=== PATIENT | female | born 1965 | race Caucasian/White ===

== ENCOUNTER 2017-01-09 08:13 | Emergency (ER) | payer OTHER ==
[2017-01-09 08:39] VITALS: BP 183/81
--- NOTE | 2017-01-09 09:19 | UC ---
Ji Clifton Benjamin, scribed for Hiren Mccallum MD on 01/09/17 at 0902 . Complaint Female HPI - HPI Summary HPI Summary: 52yo female c/o burning sensation dysuria, also with blood for 2 days. Pt also reports having diarrhea for a month with some stomach cramps. PMHx includes tubal ligation and HTN. - History Of Current Complaint Chief Complaint: UCGU Stated Complaint: UTI SYMPTOMS Time Seen by Provider: 01/09/17 08:56 Hx Obtained From: Patient Hx Last Menstrual Period: 2010 ?: No Onset/Duration: Gradual Onset, Lasting Days - 2 days, Still Present Timing: Intermittent Severity Initially: Mild Severity Currently: Mild Character: Burning Aggravating Factor(s): Nothing Alleviating Factor(s): Nothing Associated Signs And Symptoms: Positive: Negative - Allergies/Home Medications Allergies/Adverse Reactions: Allergies Allergy/AdvReac Type Severity Reaction Status Date / Time No Known Allergies Allergy Verified 01/09/17 08:33 PMH/Surg Hx/FS Hx/Imm Hx Endocrine History Of: Denies: Diabetes, Thyroid Disease Cardiovascular History Of: Reports: Hypertension Denies: Cardiac Disorders Respiratory History Of: Reports: Asthma Denies: COPD GI/ History Of: Denies: Ulcer Cancer History Of: Denies: Breast Cancer - Surgical History Surgical History: Yes Surgery Procedure, Year, and Place: tubes tied - Family History Known Family History: Positive: Hypertension - father, mother, Diabetes - father , mother, Respiratory Disease - father - Social History Occupation: Employed Full-time Lives: Alone Alcohol Use: Occasionally Substance Use Type: None Smoking Status (MU): Never Smoked Tobacco - Immunization History Most Recent Influenza Vaccination: fall 2015 Most Recent Tetanus Shot: up to date Review of Systems Constitutional: Negative Skin: Negative Eyes: Negative ENT: Negative Respiratory: Negative Cardiovascular: Negative Gastrointestinal: Negative Genitourinary: Dysuria, Hematuria Motor: Negative Neurovascular: Negative Musculoskeletal: Negative Neurological: Negative Psychological: Negative All Other Systems Reviewed And Are Negative: Yes Physical Exam Triage Information Reviewed: Yes Appearance: Well-Appearing, No Pain Distress, Well-Nourished, Obese Vital Signs: Initial Vital Signs Temp 97.7 F 01/09/17 08:34 Pulse 80 01/09/17 08:34 Resp 16 01/09/17 08:34 BP 183/81 01/09/17 08:34 Pulse Ox 98 01/09/17 08:34 Eye Exam: Normal ENT Exam: Normal Dental Exam: Normal Neck exam: Normal Respiratory: Positive: Lungs clear, Normal breath sounds Cardiovascular: Positive: RRR, No Murmur Abdomen Description: Positive: Nontender. Negative: CVA Tenderness (R), CVA Tenderness (L) Musculoskeletal: Positive: Strength Intact, ROM Intact Neurological Exam: Normal Psychological Exam: Normal Skin Exam: Normal Complaint Female Dx - Course Course Of Treatment: 51 yr old female with UTI, will rx with cipro. I have referred her to her PMD for follow up for her change in bowel and health maintenance. - Differential Dx/Diagnosis Provider Diagnoses: Urinary tract infection Discharge - Discharge Plan Condition: Good Disposition: HOME Prescriptions: Ciprofloxacin HCl [Cipro 250 MG TAB] 250 mg PO BID #14 tab Patient Education Materials: Urinary Tract Infection in Women (ED) Referrals: Jose Alfredo Spann MD [Primary Care Provider] - 1 Day Additional Instructions: You need to follow up with your primary care doctor for your loose stools, and routine health maintenance. You need colonoscopy screening if you have not had one yet. Call your doctor today for follow up. The documentation as recorded by the Ji lo Benjamin accurately reflects the service I personally performed and the decisions made by Alessio vargas Walter, MD.
== END 2017-01-09 09:22 | disposition home or self-care (01) ==
LOC: UCEAST 08:13
DX: N39.0 Urinary tract infection, site not specified (principal); R31.9 Hematuria, unspecified; R19.7 Diarrhea, unspecified; I10 Essential (primary) hypertension; J45.909 Unspecified asthma, uncomplicated; E66.9 Obesity, unspecified
CPT/HCPCS: 81003; 87077; 87086; 87186; 99212; G0463

== ENCOUNTER 2017-07-26 09:57 | Emergency (ER) | payer OTHER ==
[2017-07-26] MEDS ORDERED: Ibuprofen TAB* 800 MG PO ONE ×2 (11:33→11:35)
[2017-07-26 13:45] VITALS: BP 120/62
--- NOTE | 2017-07-26 13:47 | ED ---
Throat Pain/Nasal Congestion - HPI Summary HPI Summary: Pt here w/ B/L otalgia and pressure x 3 months. She has been to her PCP's office 3 x since this started and has completed 3 courses of antibiotics. She reports minimal relief with each course however pressure and fullness persist. Past 2 days, she's developed rhinorrhea and today has sinus pain/pressure and generalized achiness. Chills w/o fever. PND w/ minor ST this morning. Denies cough, chest pain, SOB, rash, ab pain, N/V/D, otorrhea, hearing loss. She admits to deviated septum and h/o allergies (dogs). Has not tried decongestants nor anti-histamines throughout the course of her sx's. - History of Current Complaint Chief Complaint: EDEarPain Time Seen by Provider: 07/26/17 11:33 Hx Obtained From: Patient, Family/Music Minister - nephew - Allergies/Home Medications Allergies/Adverse Reactions: Allergies Allergy/AdvReac Type Severity Reaction Status Date / Time No Known Allergies Allergy Verified 07/26/17 10:02 PMH/Surg Hx/FS Hx/Imm Hx Previously Healthy: Yes Endocrine/Hematology History: Denies: Hx Diabetes, Hx Thyroid Disease Cardiovascular History: Reports: Hx Hypertension - controlled w/ meds Respiratory History: Reports: Hx Asthma, Other Respiratory Problems/Disorders - dogs - possibly environmental allergies Denies: Hx Chronic Obstructive Pulmonary Disease (COPD) GI History: Denies: Hx Ulcer History: Denies: Hx Dialysis, Hx Renal Disease - Cancer History Hx Chemotherapy: No Hx Radiation Therapy: No - Surgical History Surgery Procedure, Year, and Place: tubal Infectious Disease History: No Infectious Disease History: Denies: Hx Clostridium Difficile, Hx Hepatitis, Hx Human Immunodeficiency Virus (HIV), Hx of Known/Suspected MRSA, Hx Shingles, Hx Tuberculosis, Hx Known/ Suspected VRE, Hx Known/Suspected VRSA, History Other Infectious Disease, Traveled Outside the [place] in Last 30 Days - Family History Known Family History: Positive: Hypertension - father, mother, Diabetes - father , mother, Respiratory Disease - father - Social History Occupation: Employed Full-time - [employer] Lives: Alone Alcohol Use: Occasionally Hx Substance Use: No Substance Use Type: Reports: None Hx Tobacco Use: No Smoking Status (MU): Never Smoked Tobacco Review of Systems Positive: Chills. Negative: Fever Eyes: Negative Negative: Photophobia, Blurred Vision, Diplopia, Drainage, Erythema Positive: Sore Throat, Ear Ache, Nasal Discharge. Negative: Epistaxis, Dental Pain Cardiovascular: Negative Respiratory: Negative Gastrointestinal: Negative Positive: no symptoms reported Positive: Arthralgia. Negative: Decreased ROM, Edema Skin: Negative Neurological: Negative Psychological: Other - frustrated All Other Systems Reviewed And Are Negative: Yes Physical Exam Triage Information Reviewed: Yes Vital Signs On Initial Exam: Initial Vitals Temp Pulse Resp BP Pulse Ox 98.0 F 102 17 151/91 100 07/26/17 09:58 07/26/17 09:58 07/26/17 09:58 07/26/17 09:58 07/26/17 09:58 Vital Signs Reviewed: Yes Appearance: Positive: Well-Appearing, No Pain Distress, Well-Nourished Skin: Positive: Warm, Dry - no rash Head/Face: Positive: Normal Head/Face Inspection - Sinuses NTTP Eyes: Positive: Normal, EOMI, NOEMI, Conjunctiva Clear. Negative: Conjunctiva Inflammed, Discharge ENT: Positive: Normal ENT inspection, Hearing grossly normal, Pharynx normal, Nasal congestion - mild - Lt nare occluded - Rt nare patent (appears to have deviated setpum), TMs normal - pearly, clear - no erythema, no d/c, no lesions, TM bulging. Negative: Nasal drainage Neck: Positive: Supple, Nontender - mild, Enlarged Nodes @ - shoddy cc LN's Respiratory/Lung Sounds: Positive: Clear to Auscultation, Breath Sounds Present. Negative: Rales, Rhonchi, Stridor, Wheezes Cardiovascular: Positive: Normal, RRR, S1, S2. Negative: Murmur, Rub Abdomen Description: Positive: Nontender, Soft Bowel Sounds: Positive: Present Musculoskeletal: Positive: Normal, Strength/ROM Intact Neurological: Positive: Normal, Sensory/Motor Intact, Alert, Oriented to Person Place, Time, CN Intact II-III Psychiatric: Positive: Normal - Seven Coma Scale Coma Scale Total: 15 Diagnostics - Vital Signs Vital Signs Temp Pulse Resp BP Pulse Ox 07/26/17 13:00 98 146/127 95 07/26/17 12:30 99 144/76 95 07/26/17 12:00 101 124/81 95 07/26/17 11:41 96 07/26/17 11:30 100 142/79 97 07/26/17 11:00 100 144/70 97 07/26/17 10:30 100 146/73 98 07/26/17 10:20 107 96 07/26/17 10:18 129/74 07/26/17 10:16 145/80 07/26/17 09:58 98.0 F 102 17 151/91 100 - Laboratory Lab Results: Lab Results 07/26/17 07/26/17 Range/Units 11:51 12:08 Influenza A (Rapid) Negative (Negative) Influenza B (Rapid) Negative (Negative) Group A Strep Rapid Negative (Negative) Lab Statement: Any lab studies that have been ordered have been reviewed, and results considered in the medical decision making process. EENT Course/Dx - Course Course Of Treatment: Pt does not appear to have infection rather chronic swelling of nasal passages along w/ deviated septum cauing eustachian tube dysfunction. Recommend decongestants w/ BP monitoring - if elevated, stop decongestants and continue w/ saline nasal spray/throat gargles alone. SHe had relief today as well w/ ibuprofen - recommend continuing for anti-inflammatory effects. F/u w/ ENT as directed in Aug. If worse, f/u w/ PCP and recommend outpt CT. - Diagnoses Provider Diagnoses: Eustachian tube dysfunction, Deviated septum Discharge - Discharge Plan Condition: Stable Disposition: HOME Patient Education Materials: Earache (ED) Referrals: Jose Alfredo Spann MD [Primary Care Provider] - Additional Instructions: You appear to have chronic swelling of nasal passages along with deviated septum causing a eustachian tube dysfunction. You may try decongestants such as saline nasal spray, menthol ointment rub (ie. Vicks's vapor rub) and/or throat lozenges (ie. cough drops, etc) and Afrin nasal spray. NOTE: check Blood Pressure of you decide to use Afrin as this may elevate your level. If blood pressure remains <140/90 and no symptoms, may continue to use. If blood pressure > 140/90 and/or you develop headache, visual change, chest pain, shortness of breath - do not repeat use and seek medical attention. Follow-up with ENT as directed in August. *If worse prior, follow-up with PCP and recommend outpatient CT.
== END 2017-07-26 13:44 | disposition home or self-care (01) ==
LOC: ED 09:57
DX: H69.90 Unspecified Eustachian tube disorder, unspecified ear (principal); J34.2 Deviated nasal septum; J02.9 Acute pharyngitis, unspecified
CPT/HCPCS: 87502; 87651; 99282; A9270-GY

== ENCOUNTER 2018-09-02 10:27 | Emergency (ER) | payer OTHER ==
[2018-09-02 10:33] VITALS: BP 136/86
--- NOTE | 2018-09-02 10:35 | UC ---
Respiratory Complaint HPI - HPI Summary HPI Summary: 53 yo female presents with sinus pain/pressure/congestion, left ear pain and intermittently productive cough for the last 6-7 days. She tells me that she has a history of asthma and uses her proair at home with good relief for a short time. She has not been taking anything OTC. Does feel some short of breath at times. Denies fever, chills, sore throat, chest pain, n/v. - History of Current Complaint Chief Complaint: UCRespiratory Stated Complaint: EAR PAIN Time Seen by Provider: 09/02/18 10:34 Hx Obtained From: Patient Hx Last Menstrual Period: 2010 Onset/Duration: Gradual Onset Severity Initially: Mild Severity Currently: Mild Pain Intensity: 3 Pain Scale Used: 0-10 Numeric Character: Cough: Productive - Allergies/Home Medications Allergies/Adverse Reactions: Allergies Allergy/AdvReac Type Severity Reaction Status Date / Time No Known Allergies Allergy Verified 09/02/18 10:33 PMH/Surg Hx/FS Hx/Imm Hx Respiratory History: Asthma GI/ History: Gastroesophageal Reflux - Surgical History Surgical History: Yes Surgery Procedure, Year, and Place: tubal - Family History Known Family History: Positive: Hypertension - father, mother, Diabetes - father , mother, Respiratory Disease - father - Social History Occupation: Employed Full-time Lives: With Family Alcohol Use: Occasionally Substance Use Type: None Smoking Status (MU): Never Smoked Tobacco - Immunization History Most Recent Influenza Vaccination: fall 2015 Most Recent Tetanus Shot: up to date Review of Systems All Other Systems Reviewed And Are Negative: Yes Constitutional: Positive: Negative Skin: Positive: Negative Eyes: Positive: Negative ENT: Positive: Ear Ache, Nasal Discharge, Sinus Congestion, Sinus Pain/ Tenderness Respiratory: Positive: Cough Cardiovascular: Positive: Negative Gastrointestinal: Positive: Negative Neurovascular: Positive: Negative Neurological: Positive: Negative Psychological: Positive: Negative Physical Exam - Summary Physical Exam Summary: GENERAL: NAD. WDWN. No pain distress. SKIN: No rashes, sores, lesions, or open wounds. HEENT: Head: AT/NC Eyes: Conjunctiva clear without inflammation or discharge. Ears: Hearing grossly normal. TMs intact, no bulging, erythema, or edema. Nose: Nasal mucosa mildly swollen and erythematous with yellow discharge. TTP maxillary and frontal sinus. Positive post nasal drip Throat: Posterior oropharynx without exudates, erythema, or tonsillar enlargement. Uvula midline. NECK: Supple. Nontender. No lymphadenopathy. CHEST: Mild wheezing throughout. No r/r. No accessory muscle use. Breathing comfortably and in no distress. CV: RRR. Without m/r/g. Pulses intact. Cap refill <2seconds NEURO: Alert. PSYCH: Age appropriate behavior. Triage Information Reviewed: Yes Vital Signs: Initial Vital Signs Temp 97.8 F 09/02/18 10:31 Pulse 83 09/02/18 10:31 Resp 16 09/02/18 10:31 BP 136/86 09/02/18 10:31 Pulse Ox 100 09/02/18 10:31 Vital Signs Reviewed: Yes UC Diagnostic Evaluation - Laboratory O2 Sat by Pulse Oximetry: 100 Respiratory Course/Dx - Course Course Of Treatment: CXR: IMPRESSION: RIGHT MIDDLE LOBE ATELECTASIS. Sinusitis. Asthma exacerbation. - Differential Dx/Diagnosis Provider Diagnosis: Sinusitis, Asthma exacerbation Discharge - Sign-Out/Discharge Documenting (check all that apply): Patient Departure All imaging exams completed and their final reports reviewed: Yes - Discharge Plan Condition: Stable Disposition: HOME Prescriptions: Azithromycin TAB* [Zithromax TAB (Z-SIMONA) 250 mg #6 tabs] 2 tab PO .TODAY, THEN 1 DAILY #1 simona Patient Education Materials: Sinusitis (ED), Atelectasis (ED) Referrals: Jose Alfredo Spann MD [Primary Care Provider] - Additional Instructions: If you develop a fever, shortness of breath, chest pain, new or worsening symptoms - please call your PCP or go to the ED. Your blood pressure was high at todays visit. Please see your primary provider within 4 weeks for recheck and re-evaluation. - Billing Disposition and Condition Condition: STABLE Disposition: Home - Attestation Statements Provider Attestation: I was available for consult. This patient was seen by the MARLON. The patient was not presented to, seen by, or examined by me
== END 2018-09-02 11:40 | disposition home or self-care (01) ==
LOC: UCEAST 10:27
DX: J32.9 Chronic sinusitis, unspecified (principal); J45.901 Unspecified asthma with (acute) exacerbation
CPT/HCPCS: 71046; 99212; G0463

== ENCOUNTER 2019-09-10 11:52 | Emergency (ER) | payer OTHER ==
--- OUTSIDE RECORDS SUMMARY | 2019-09-10 12:16 | XMS REPORT | Continuity of Care Document ---
:1965 External Reference #:[id number] Author Name Jose Alfredo Spann M.D. Address [address] [place] [id number] Problems Active Problems Provider Date Asthma without status asthmaticus Jose Alfredo Spann M.D. Onset: 12/15/2011 Malaise and fatigue Jose Alfredo Spann M.D. Onset: 12/15/2011 Dysmenorrhea Deirdre Aleksander FNP Onset: 12/15/2011 Benign essential hypertension Jose Alfredo Spann M.D. Onset: 12/15/2011 Peptic reflux disease Jose Alfredo Spann M.D. Onset: 12/15/2011 Mixed hyperlipidemia Jose Alfredo Spann M.D. Onset: 12/15/2011 Allergic rhinitis Jose Alfredo Spann M.D. Onset: 12/15/2011 Other malaise Jose Alfredo Spann M.D. Onset: 06/06/2015 Essential hypertension Jose Alfredo Spann M.D. Onset: 06/06/2015 Overweight Jose Alfredo Spann M.D. Onset: 06/06/2015 Vitamin D deficiency Jose Alfredo Spann M.D. Onset: 06/06/2015 Iron deficiency anemia Jose Alfredo Spann M.D. Onset: 06/06/2015 Social History Type Date Description Comments Sex Unknown Tobacco Use Start: Unknown Never Smoked Cigarettes ETOH Use Occasionally consumes alcohol Tobacco Use Start: Unknown Patient has never smoked Allergies, Adverse Reactions, Alerts Description No Known Drug Allergies Medications Active Medications SIG Qnty Indications Ordering Provider Date Amoxicillin/Clavulana 1 tab by mouth 20tabs J01.40 Jose Alfredo Spann, 2018 te Potassium twice a day M.D. 875-125mg Tablets Diflucan 1 tab by mouth 2tabs J01.40 Jose Alfredo Spann, 07/27/2019 150mg Tablets today and repeat M.D. in 1 week as needed Telmisartan Take 1 Tablet By 90tabs I10 Jose Alfredo Spann, 06/22/2019 80mg Mouth Once Daily M.D. Tablets Womens Daily 1 by mouth every 90tabs E55.9 Jose Alfredo Spann, 02/02/2019 Formula/Folic day M.D. Acid/Calcium/Iron Tablets D50.9 Fexofenadine HCL 1 by mouth every 90tabs J30.9 Jose Alfredo Spann, 06/05/2018 180mg day M.D. Tablets Proair HFA inhale 2 puffs by 17gm J45.909 Jose Alfredo Spann, 05/25/2013 108(90Base) mouth every 4 M.D. mcg/Act Aerosol hours if needed Immunizations Description No Information Available Vital Signs Date Vital Result Comment 07/27/2019 4:31pm BP Systolic 124 mmHg BP Diastolic 72 mmHg Height 61 inches 5'1" Weight 176.00 lb BMI (Body Mass Index) 33.3 kg/m2 Heart Rate 74 /min Respiratory Rate 16 /min 02/02/2019 4:12pm BP Systolic 118 mmHg BP Diastolic 78 mmHg Height 61 inches 5'1" Weight 176.00 lb BMI (Body Mass Index) 33.3 kg/m2 Heart Rate 70 /min Respiratory Rate 18 /min Results Test Acquired Date Facility Test Result H/L Range Note Laboratory test 07/27/2019 Lab [facility], <pending> finding [address] [employer] [address] [facility] (607)- - Vitamin D 25 Hydroxy <pending> Procedures Date Code Description Status 04/12/2016 29502020 Mammogram Completed 09/08/2011 35123797 Colonoscopy Completed Medical Devices Description No Information Available Encounters Type Date Location Provider Dx Diagnosis Office Visit 07/27/2019 [facility] Jose Alfredo Spann, J45.909 Unspecified asthma, 4:15p M.D. uncomplicated I10 Essential (primary) hypertension K21.0 Gastro-esophageal reflux disease with esophagitis L20.9 Atopic dermatitis, unspecified J30.9 Allergic rhinitis, unspecified E78.2 Mixed hyperlipidemia D50.9 Iron deficiency anemia, unspecified E55.9 Vitamin D deficiency, unspecified E66.01 Morbid (severe) obesity due to excess calories J01.40 Acute pansinusitis, unspecified H66.93 Otitis media, unspecified, bilateral Office Visit 02/02/2019 4:15p [facility] Jose Alfredo Spann J45.909 Unspecified asthmaYuliana M.D. uncomplicated I10 Essential (primary) hypertension K21.0 Gastro-esophageal reflux disease with esophagitis L20.9 Atopic dermatitis, unspecified J30.9 Allergic rhinitis, unspecified E78.2 Mixed hyperlipidemia D50.9 Iron deficiency anemia, unspecified E55.9 Vitamin D deficiency, unspecified E66.01 Morbid (severe) obesity due to excess calories Assessments Date Code Description Provider 07/27/2019 J45.909 Unspecified asthma, uncomplicated Jose Alfredo Spann M.D. 07/27/2019 I10 Essential (primary) hypertension Jose Alfredo Spann M.D. 07/27/2019 K21.0 Gastro-esophageal reflux disease with ZanaJose Alfredo diallo M.D. esophagitis 07/27/2019 L20.9 Atopic dermatitis, unspecified Jose Alfredo Spann M.D. 07/27/2019 J30.9 Allergic rhinitis, unspecified Jose Alfredo Spann M.D. 07/27/2019 E78.2 Mixed hyperlipidemia Jose Alfredo Spann M.D. 07/27/2019 D50.9 Iron deficiency anemia, unspecified Jose Alfredo Spann M.D. 07/27/2019 E55.9 Vitamin D deficiency, unspecified Jose Alfredo Spann M.D. 07/27/2019 E66.01 Morbid (severe) obesity due to excess ZanaJose Alfredo M.D. calories 07/27/2019 J01.40 Acute pansinusitis, unspecified Zana, Ahmad M., M.D. 07/27/2019 H66.93 Otitis media, unspecified, bilateral Jose Alfredo Spann M.D. 07/26/2019 J45.909 Unspecified asthma, uncomplicated Panchito Whiting, N.P. 07/26/2019 I10 Essential (primary) hypertension Panchito Whiting, N.P. 07/26/2019 K21.0 Gastro-esophageal reflux disease with Panchito Whiting, N.P. esophagitis 07/26/2019 L20.9 Atopic dermatitis, unspecified Panchito Whiting, N.P. 07/26/2019 J30.9 Allergic rhinitis, unspecified Panchito Whiting, N.P. 07/26/2019 E78.2 Mixed hyperlipidemia Panchito Whiting, N.P. 07/26/2019 D50.9 Iron deficiency anemia, unspecified Panchito Whiting, N.P. 07/26/2019 E55.9 Vitamin D deficiency, unspecified Panchito Whiting, N.P. 07/26/2019 E66.01 Morbid (severe) obesity due to excess Panchito Whiting, N.P. calories 02/02/2019 J45.909 Unspecified asthma, uncomplicated Jose Alfredo Spann M.D. 02/02/2019 I10 Essential (primary) hypertension Jose Alfredo Spann M.D. 02/02/2019 K21.0 Gastro-esophageal reflux disease with Jose Alfredo Spann M.D. esophagitis 02/02/2019 L20.9 Atopic dermatitis, unspecified Jose Alfredo Spann M.D. 02/02/2019 J30.9 Allergic rhinitis, unspecified Jose Alfredo Spann M.D. 02/02/2019 E78.2 Mixed hyperlipidemia Jose Alfredo Spann M.D. 02/02/2019 D50.9 Iron deficiency anemia, unspecified Jose Alfredo Spann M.D. 02/02/2019 E55.9 Vitamin D deficiency, unspecified Jose Alfredo Spann M.D. 02/02/2019 E66.01 Morbid (severe) obesity due to excess Zana, Ahmad M., M.D. calories Plan of Treatment 07/27/2019 - Jose Alfredo Spann M.D.J45.909 Unspecified asthma, uncomplicatedComments:MDI / NEBULIZER TX PRN AVOID EXPOSURE TO SMOKING OR [id number] Essential (primary) hypertensionComments:CHECK BP TIW ( PRN)DIET AND FLUID COUNSELING LOW SODIUM DIETWT LOSSF/U LABK21.0 Gastro-esophageal reflux disease with esophagitisComments:AVOID CAFFEINE, ETOH AND SPICY FOODSTUMS OR MYLANTA PRN CALL WITH PROBLEMS OR ISOENZMMW97.9 Atopic dermatitis, unspecifiedComments:SKIN CARE INSTRUCTIONS LOTION OR BABY OIL 2-3 APPLICATION PER DAYUSE MOISTURIZING SOAPAVOID PROLONGED WATER EXPOSUREAVOID USING HOT WATER IN ZCEEBTT57.9 Allergic rhinitis, unspecifiedComments:INCREASE PO FLUID USE ANTIHISTAMINE PRN SECOND HAND SMOKING IOSZRQNIYO98.2 Mixed hyperlipidemiaComments:DIET REVIEWED CONTINUE DIETWT LOSSF/U LAB FBWD50.9 Iron deficiency anemia, unspecifiedComments:DIET SPPLEMENTIRON SUPPLEMENT NEEDEDF/ U LABE55.9 Vitamin D deficiency, unspecifiedComments:INCREASE EXPOSURE TO SUNREVIEW OF DIETE66.01 Morbid (severe) obesity due to excess caloriesComments: WT LOSS COUNCELLINGEXERCISEDIET ZSTIUHHHJJUE74.40 Acute pansinusitis, unspecifiedNew Medication:Amoxicillin/Clavulanate Potassium 875-125 mg - 1 tab by mouth twice a dayDiflucan 150 mg - 1 tab by mouth today and repeat in 1 week as neededComments:INCREASE PO FLUIDTYLENOL OR MOTRIN PRN ANTIHISTAMINE PRNH66.93 Otitis media, unspecified, bilateralComments:INCREASE PO FLUID TYLENOL OR MOTRIN PRN ANTIHISTAMINE PRN Functional Status Functional Condition Comment Date Status .None Active Mental Status Description No Information Available Referrals Description No Information Available
[2019-09-10 12:35] VITALS: BP 155/93
--- NOTE | 2019-09-10 13:05 | UC ---
Respiratory Complaint HPI - HPI Summary HPI Summary: 3 DAYS OF SINUS PRESSURE, EAR FULLNESS, COUGH, FATIGUE. HAD SEVERAL EPISODES OF WATERY STOOLS THIS MORNING. NO FEVER. - History of Current Complaint Chief Complaint: UCRespiratory Stated Complaint: SINUS PROBLEM, CHILLS Time Seen by Provider: 09/10/19 13:01 Hx Last Menstrual Period: 2010 Onset/Duration: Gradual Onset, Lasting Days, Still Present Timing: Constant Severity Initially: Moderate Severity Currently: Moderate Pain Intensity: 7 Pain Scale Used: 0-10 Numeric Character: Cough: Nonproductive Aggravating Factors: Nothing Alleviating Factors: Nothing Associated Signs And Symptoms: Positive: URI, Nasal Congestion. Negative: Fever - Allergies/Home Medications Allergies/Adverse Reactions: Allergies Allergy/AdvReac Type Severity Reaction Status Date / Time No Known Allergies Allergy Verified 09/10/19 12:35 PMH/Surg Hx/FS Hx/Imm Hx Cardiovascular History: Hypertension Respiratory History: Asthma GI/ History: Gastroesophageal Reflux - Surgical History Surgical History: Yes Surgery Procedure, Year, and Place: tubal - Family History Known Family History: Positive: Hypertension - father, mother, Diabetes - father , mother, Respiratory Disease - father - Social History Alcohol Use: Weekly Substance Use Type: None Smoking Status (MU): Never Smoked Tobacco - Immunization History Most Recent Influenza Vaccination: fall 2015 Most Recent Tetanus Shot: up to date Review of Systems All Other Systems Reviewed And Are Negative: Yes Constitutional: Positive: Fatigue ENT: Positive: Ear Ache, Nasal Discharge Respiratory: Positive: Cough Cardiovascular: Positive: Negative Gastrointestinal: Positive: Negative Physical Exam Triage Information Reviewed: Yes Appearance: Well-Appearing, No Pain Distress, Well-Nourished Vital Signs: Initial Vital Signs Temp 98.1 F 09/10/19 12:32 Pulse 68 09/10/19 12:32 Resp 18 09/10/19 12:32 BP 155/93 09/10/19 12:32 Pulse Ox 99 09/10/19 12:32 Vital Signs Reviewed: Yes Eyes: Positive: Conjunctiva Clear ENT: Positive: Hearing grossly normal, Pharynx normal, TMs normal Neck: Positive: Supple Respiratory Exam: Normal Cardiovascular Exam: Normal Abdomen Description: Positive: Soft Musculoskeletal: Positive: No Edema Neurological: Positive: Alert Psychological: Positive: Age Appropriate Behavior Skin: Negative: Rashes Respiratory Course/Dx - Differential Dx/Diagnosis Provider Diagnosis: Acute sinusitis Discharge ED - Sign-Out/Discharge Documenting (check all that apply): Patient Departure All imaging exams completed and their final reports reviewed: No Studies - Discharge Plan Condition: Stable Disposition: HOME Prescriptions: predniSONE 20 mg TAB [Deltasone 20 MG TAB*] 40 mg PO DAILY #10 tab Patient Education Materials: Sinusitis (ED) Referrals: Jose Alfredo Spann MD [Primary Care Provider] - If Needed Additional Instructions: YOUR SYMPTOMS ARE LIKELY VIRALLY MEDIATED AND SHOULD RESOLVE ON THEIR OWN WITH TIME. NO INDICATION FOR ANTIBIOTICS AT PRESENT. REST, HYDRATE, OTC MEDS NEEDED. WILL TREAT WITH PREDNISONE TO HELP WITH INFLAMMATION. SEEK FOLLOW-UP IF YOU ARE NOT IMPROVING OVER THE NEXT 1-2 WEEKS. USE OTC AFRIN FOR NASAL CONGESTION. 2 SPRAYS IN EACH NOSTRIL TWICE DAILY NEEDED. DO NOT USE FOR MORE THAN 3-4 DAYS IN A ROW TO PREVENT DEVELOPING REBOUND CONGESTION. - Billing Disposition and Condition Condition: STABLE Disposition: Home
== END 2019-09-10 13:28 | disposition home or self-care (01) ==
LOC: UCEAST 11:52
DX: J01.90 Acute sinusitis, unspecified (principal); I10 Essential (primary) hypertension; J45.909 Unspecified asthma, uncomplicated
CPT/HCPCS: 99212; G0463